=== PATIENT | male | born 1950 | race Caucasian/White ===

== ENCOUNTER 2022-10-15 11:27 | Emergency (ER) | payer MEDICARE, BC ==
[2022-10-15] MEDS ORDERED: Ketorolac 30 MG/ML SDV IVPUSH ONE (11:36)
[2022-10-15] MEDS ORDERED: Sodium Chloride 0.9% 10 ML Syringe FLUSH PRN (11:36)
[2022-10-15] MEDS ORDERED: Sodium Chloride 0.9% 2.5 ML Syringe FLUSH PRN (11:36)
[2022-10-15] MEDS ORDERED: HYDROmorphone 1 MG/ML Syringe IVPUSH ONE (11:36)
[2022-10-15] MEDS ORDERED: Sodium Chloride 0.9% 1,000 ML IV ONE (11:42)
[2022-10-15 12:09] LABS: CARBON DIOXIDE,CO2 29.5 mmol/L (21.0-32.0); POTASSIUM,K 4.4 mmol/L (3.5-5.1)
[2022-10-15] MEDS ORDERED: fentaNYL 50 MCG/ML SDV IVPUSH ONE (12:48)
[2022-10-15] MEDS ORDERED: Propofol 200 MG/20 ML SDV IVPUSH ONE (12:48)
[2022-10-15] MEDS ORDERED: Iopamidol 755 MG/ML 500 ML Multipack Bottle IVPUSH ONE (12:49)
[2022-10-15 14:51] LABS: C. TRACHOMATIS BY PCR NOT DETECTED; N. GONORRHOEAE BY PCR NOT DETECTED
[2022-10-15 15:03] VITALS: BP 118/65; PULSE 60
== END 2022-10-15 15:01 | disposition home or self-care (01) ==
LOC: MW.ED 11:27
DX: K40.90 Unilateral inguinal hernia, without obstruction or gangrene, not specified as recurrent (principal); N45.1 Epididymitis
CPT/HCPCS: 36415; 74177; 76870; 80048; 81001; 85025; 87491; 87591; 93976; 96361; 96374; 96375; 99284; J1170; J1885; J3010; J3490; J7030; Q9967